=== PATIENT | female | born 1955 ===

== ENCOUNTER 2017-02-07 09:45 | Outpatient (CLI) | payer BC | END 2017-02-07 09:46 | disposition home or self-care (01) | LOC: LAB 09:45 | DX: R05 Cough (principal) | CPT/HCPCS: 36415; 82164 ==

== ENCOUNTER 2020-11-09 02:32 | Emergency (ER) | payer MEDICARE ==
[2020-11-09 02:57] VITALS: BP 175/85
--- NOTE | 2020-11-09 03:50 | Cat Scan Report ---
CT HEAD WITHOUT CONTRAST INDICATION / CLINICAL INFORMATION: fell and hit head LAC to head. TECHNIQUE: All CT scans at this location are performed using CT dose reduction for ALARA by means of automated e xposure control. COMPARISON: None available. FINDINGS: HEMORRHAGE: None. EXTRA-AXIAL SPACES: Normal in size and morphology for the patient's age. VENTRICULAR SYSTEM: Normal in size and morphology for the patient's age. CEREBRAL PARENCHYMA: Mild microangiopathy No significant abnormality. No acute territorial infarct. MIDLINE SHIFT OR HERNIATION: None. CEREBELLUM / BRAINSTEM: No significant abnormality. ORBITS: Normal as visualized. SOFT TISSUES of HEAD: Small hyperdense foreign body left frontal scalp soft tissues sagittal image 35 and axial image 18 CALVARIUM: No significant abnormality. PARANASAL SINUSES / MASTOID AIR CELLS: Normal as visualized. ADDITIONAL FINDINGS: None. IMPRESSION: 1. No acute intracranial abnormality. 2. Mild microangiopathy 3. Small laceration or foreign body left anterior scalp subcutaneous soft tissues Signer Name: Kyrie Rojas MD Signed: 11/09/2020 3:45 AM Workstation Name: [id number]
--- NOTE | 2020-11-09 04:56 | Emergency Department Report ---
ED Head Trauma HPI - General Chief complaint: Fall Stated complaint: SLIP AND FALL/HEAD LAC Time Seen by Provider: 11/09/20 04:45 Source: patient Mode of arrival: Ambulatory Limitations: No Limitations - History of Present Illness Initial comments: 65-year-old female with lower goes upstairs working when she lost her balance falling forward on the knees striking a fall and head hitting a door which had some eyeglasses causing it to break. Since falling striking her head she reports having a dull throbbing headache since the onset also sustained a l aceration. Headache has been gradually worsening since the onset but reports no loss of vision no tinnitus no seizure history is or activity. No chest pain palpitation no neck pain no nausea no vomiting MD Complaint: head injury, fall Loss of Consciousness: no Place: work Severity: moderate Severity scale (0 -10): 6 Quality: dull, aching - Related Data Previous Rx's Medication Instructions Recorded Last Taken Type Ibuprofen [Motrin] 800 mg PO Q8HR PRN #15 tablet 12/09/14 Unknown Rx Allergies/Adverse reactions: Allergies Allergy/AdvReac Type Severity Reaction Status Date / Time hydromorphone Allergy Itching Verified 12/09/14 15:42 morphine Allergy Itching Verified 12/09/14 15:42 ED Review of Systems ROS: Stated complaint: SLIP AND FALL/HEAD LAC Other details as noted in HPI Comment: All other systems reviewed and negative ED Past Medical Hx - Past Medical History Previous Medical History?: No - Surgical History Past Surgical History?: Yes Additional Surgical History: right partial knee replacement. hyster. - Social History Smoking Status: Never Smoker Substance Use Type: None - Medications Home Medications: Home Medications Medication Instructions Recorded Confirmed Last Taken Type Ibuprofen [Motrin] 800 mg PO Q8HR PRN #15 tablet 12/09/14 Unknown Rx ED Physical Exam - General Limitations: No Limitations General appearance: alert, in no apparent distress - Expanded Head Exam Expanded 1 - Laceration to this region linear 2.5 cm - Eye Eye exam: Present: normal appearance, PERRL, EOMI, scleral icterus Pupils: Present: normal accommodation - ENT ENT exam: Present: normal exam, normal orophraynx, mucous membranes moist, TM's normal bilaterally - Neck Neck exam: Present: normal inspection, full ROM - Respiratory Respiratory exam: Present: normal lung sounds bilaterally. Absent: respiratory distress - Cardiovascular Cardiovascular Exam: Present: regular rate, normal rhythm. Absent: systolic murmur, diastolic murmur, rubs, gallop - GI/Abdominal GI/Abdominal exam: Present: soft, distended, normal bowel sounds. Absent: guarding, rebound, hyperactive bowel sounds, hypoactive bowel sounds, bruit - Extremities Exam Extremities exam: Present: normal inspection - Back Exam Back exam: Present: normal inspection. Absent: CVA tenderness (R), CVA tenderness (L) - Neurological Exam Neurological exam: Present: alert, oriented X3, CN II-XII intact, normal gait - Psychiatric Psychiatric exam: Present: normal affect, normal mood. Absent: anxious, flat affect - Skin Skin exam: Present: warm, dry, intact, normal color. Absent: rash, diaphoretic, erythema ED Course Vital Signs 11/09/20 02:56 Temperature 98.9 F Pulse Rate 74 Respiratory 18 Rate Blood Pressure 175/85 [Right] O2 Sat by Pulse 98 Oximetry - Laceration /Wound Repair Head Wound Location: head Wound Length (cm): 2 Wound's Depth, Shape: linear Wound Explored: clean Betadine Prep?: Yes Anesthesia: 1% Lidocaine Wound Debrided: minimal Wound Repaired With: Dermabond - Radiology Data Radiology results: report reviewed [facility] [address] [place] [address] Cat Scan Report Signed Patient: MO SMALLS MR#: [id number] 37 : 1955 Acct:[id number] Age/Sex: 65 / F ADM Date: 11/09/20 Loc: ED Attending Dr: Ordering Physician: STEFANI CHIN MD Date of Service: 11/09/20 Procedure(s): CT head/brain wo con Accession Number(s): [id number] cc: STEFANI CHIN MD CT HEAD WITHOUT CONTRAST INDICATION / CLINICAL INFORMATION: fell and hit head LAC to head. TECHNIQUE: All CT scans at this location are performed using CT dose reduction for ALARA by means of automated exposure control. COMPARISON: None available. FINDINGS: HEMORRHAGE: None. EXTRA-AXIAL SPACES: Normal in size and morphology for the patient's age. VENTRICULAR SYSTEM: Normal in size and morphology for the patient's age. CEREBRAL PARENCHYMA: Mild microangiopathy No significant abnormality. No acute territorial infarct. MIDLINE SHIFT OR HERNIATION: None. CEREBELLUM / BRAINSTEM: No significant abnormality. ORBITS: Normal as visualized. SOFT TISSUES of HEAD: Small hyperdense foreign body left frontal scalp soft tissues sagittal image 35 and axial image 18 CALVARIUM: No significant abnormality. PARANASAL SINUSES / MASTOID AIR CELLS: Normal as visualized. ADDITIONAL FINDINGS: None. IMPRESSION: 1. No acute intracranial abnormality. 2. Mild microangiopathy 3. Small laceration or foreign body left anterior scalp subcutaneous soft tissues Signer Name: Kyrie Rojas MD Signed: 11/09/2020 3:45 AM Workstation Name: [id number] Transcribed By: TL Dictated By: Kyrie Rojas MD Electronically Authenticated By: Kyrie Rojas MD Signed Date/Time: 11/09/20344 DD/ 1 TD/TT: Print Cancel - Medical Decision Making Current Perry coma scale 15. Does have large occiput to hematoma. No skull crepitance or stepoff. No Perkins sign. No raccoon eyes. No fluid from nose or ears. No nasal septal hematoma. No open wounds. No cervical spine tenderness. CT scan performed to evaluate for any intracranial injury or skull fracture. Patient is protecting airway and otherwise has an unremarkable secondary trauma survey. Given instructions regarding supportive care including pain meds as needed, return precautions, follow-up with primary physician. Critical care attestation.: If time is entered above; I have spent that time in minutes in the direct care of this critically ill patient, excluding procedure time. ED Disposition Clinical Impression: Fall, Head injury, Laceration of head Disposition: 01 HOME / SELF CARE / HOMELESS Is pt being admited?: No Does the pt Need Aspirin: No Condition: Stable Instructions: How to Use Cold Therapy, [id number], Laceration Care, Adult, Sutures, [place], or Adhesive Wound Closure Additional Instructions: Wound was repaired with tissue adhesive no sutures to remove. Referrals: CINDY ESCOBAR MD [Staff Physician] - 2-3 Days Forms: Work/School Release Form(ED)
[2020-11-09] MEDS ORDERED: LIDOCAINE (2%) 20 MG/1 ML VIAL 20 ML MDV INFILTRATI STA (05:20)
[2020-11-09] MEDS ORDERED: IBUPROFEN 600 MG TAB PO ONE (06:22)
== END 2020-11-09 06:28 | disposition home or self-care (01) ==
LOC: ED 02:32
DX: S01.01XA Laceration without foreign body of scalp, initial encounter (principal); Z88.5 Allergy status to narcotic agent; W19.XXXA Unspecified fall, initial encounter; Y93.89 Activity, other specified; Y92.89 Other specified places as the place of occurrence of the external cause; Y99.8 Other external cause status
CPT/HCPCS: 70450; 99283

== ENCOUNTER 2020-11-11 23:02 | Emergency (ER) | payer MEDICARE ==
[2020-11-12 00:39] VITALS: BP 184/67
[2020-11-12 01:43] LABS: Basophils % (Auto) 0.5 % (0.0-1.8); Eosinophils # (Auto) 0.2 K/mm3 (0.0-0.4); Eosinophils % (Auto) 2.1 % (0.0-4.3); Hematocrit 38.4 % (30.3-42.9); Hemoglobin 12.8 gm/dl (10.1-14.3); Lymphocytes # (Auto) 3.4 K/mm3 (1.2-5.4); Lymphocytes % (Auto) 41.7 % (13.4-35.0); Mean Corpuscular HGB Conc 33 % (30-34); Mean Corpuscular Volume 83 fl (79-97); Monocytes # (Auto) 0.6 K/mm3 (0.0-0.8); Monocytes % (Auto) 7.7 % (0.0-7.3); Platelet Count 311 K/mm3 (140-440); Red Blood Count 4.64 M/mm3 (3.65-5.03); Red Cell Distribution Width 13.7 % (13.2-15.2)
[2020-11-12 01:49] LABS: Alanine Aminotransferase 19 units/L (7-56); Albumin 4.4 g/dL (3.9-5); Blood Urea Nitrogen 7 mg/dL (7-17); Calcium 9.4 mg/dL (8.4-10.2); Hemolysis Index 0
[2020-11-12 01:55] LABS: BUN/Creatinine Ratio 10
--- NOTE | 2020-11-12 03:12 | Emergency Department Report ---
ED Headache HPI - General Chief Complaint: Headache Stated Complaint: EMESIS/HEAD INJURY Time Seen by Provider: 11/12/20 03:07 Source: patient Exam Limitations: no limitations - History of Present Illness Initial Comments: Patient is a 65-year-old female who presents emergency room with complaints of headache. Patient states she fell 3 days ago. Patient states that her headache is worsening. Patient states when she fell 3 days ago she was seen here and she had her head glued. Patient states she had a CT on that visit. Patient complains of dizziness and nausea vomiting. Patient states she also feels warm when her headache is severe.. Patient denies fever and chills. Patient denies cough. Patient denies neck stiffness. Patient states the laceration site does not hurting worse. Patient denies redness to the laceration site. Patient states that he had a minimal headache when she was here on Monday and now it is severe. Patient states the dizziness and nausea and vomiting are new. Patient states the warm feeling is the same. Patient states the pain is a 10 out of 10. Patient denies recent travel. Patient denies recent international travel. Patient denies exposure to the novel coronavirus. Patient denies sick contacts. Patient denies fever and chills. Patient denies cough. Patient denies diarrhea. Patient denies coming in contact with anybody with symptoms of the novel coronavirus. Patient denies trauma after the original fall. Timing/Duration: increasing Quality: severe Head Injury Location: global Recent Head Trauma: head trauma > 24 hrs ago Modifying Factors: improves with: movement, rest Associated Symptoms: nausea/vomiting, other (Dizziness). denies: confusion, fatigue, facial pain, fever/chills, flushing, loss of consciousness, nasal congestion, nasal drainage, numbness in legs/feet, rash, seizures, sinus infection, stiff neck, vision changes, weakness Allergies/Adverse Reactions: Allergies hydromorphone Allergy (Verified 12/09/14 15:42) Itching morphine Allergy (Verified 12/09/14 15:42) Itching Home Medications: Ambulatory Orders Acetaminophen/Codeine [Tylenol /Codeine # 3 tab] 1 tab PO Q6H PRN #12 tab Ibuprofen [Motrin 800 MG tab] 800 mg PO Q8HR PRN #15 tablet 11/12/20 ED Review of Systems ROS: Stated complaint: EMESIS/HEAD INJURY Other details as noted in HPI Constitutional: denies: chills, fever Eyes: denies: eye pain, eye discharge, vision change ENT: denies: ear pain, throat pain Respiratory: denies: cough, shortness of breath, wheezing Cardiovascular: denies: chest pain, palpitations Endocrine: no symptoms reported Gastrointestinal: denies: abdominal pain, nausea, diarrhea Genitourinary: denies: urgency, dysuria, discharge Musculoskeletal: denies: back pain, joint swelling, arthralgia Skin: denies: rash, lesions Neurological: as per HPI, headache. denies: weakness, paresthesias Psychiatric: denies: anxiety, depression Hematological/Lymphatic: denies: easy bleeding, easy bruising ED Past Medical Hx - Past Medical History Previous Medical History?: No - Surgical History Past Surgical History?: Yes Additional Surgical History: right partial knee replacement. hyster. - Family History Family history: no significant - Social History Smoking Status: Never Smoker Substance Use Type: None - Medications Home Medications: Home Medications Medication Instructions Recorded Confirmed Last Taken Type Acetaminophen/Codeine [Tylenol 1 tab PO Q6H PRN #12 tab 11/12/20 Unknown Rx /Codeine # 3 tab] Ibuprofen [Motrin 800 MG tab] 800 mg PO Q8HR PRN #15 tablet 11/12/20 Unknown Rx ED Physical Exam - General Limitations: No Limitations General appearance: alert, in no apparent distress - Head Head exam: Present: atraumatic, normocephalic - Eye Eye exam: Present: normal appearance, PERRL Pupils: Present: normal accommodation - ENT ENT exam: Present: mucous membranes moist - Neck Neck exam: Present: normal inspection, full ROM. Absent: tenderness, meningismus, lymphadenopathy, thyromegaly - Respiratory Respiratory exam: Present: normal lung sounds bilaterally. Absent: respiratory distress - Cardiovascular Cardiovascular Exam: Present: regular rate, normal rhythm. Absent: systolic murmur, diastolic murmur, rubs, gallop - GI/Abdominal GI/Abdominal exam: Present: soft, normal bowel sounds - Extremities Exam Extremities exam: Present: normal inspection - Back Exam Back exam: Present: normal inspection - Neurological Exam Neurological exam: Present: alert, oriented X3, CN II-XII intact, normal gait. Absent: abnormal gait, motor sensory deficit - Psychiatric Psychiatric exam: Present: normal affect, normal mood - Skin Skin exam: Present: warm, dry, normal color, other (Laceration noted to the left forehead and is glued and is healing well. No signs of infection or redness to the laceration site.). Absent: rash ED Course Vital Signs 11/12/20 00:37 Temperature 98.4 F Pulse Rate 74 Respiratory 18 Rate Blood Pressure 184/67 [Left] O2 Sat by Pulse 100 Oximetry - Reevaluation(s) Reevaluation #1: I discussed all results and clinical findings with patient. I discussed plan of care with patient. Patient agrees with plan of care. Patient is stable for discharge. Patient will be discharged home. Patient given discharge instructions. Patient voiced understanding of discharge instructions. 11/12/20 05:09 ED Medical Decision Making - Lab Data Result diagrams: 11/12/20 00:53 11/12/20 00:53 - Radiology Data Radiology results: report reviewed, image reviewed interpreted by me: Chest x-ray: No pneumonia, no pneumothorax, no foreign body, no osseous findings, no acute findings CT HEAD WITHOUT CONTRAST INDICATION / CLINICAL INFORMATION: Post-Fall x 3 days ago, Now with a worsening headache.. TECHNIQUE: All CT scans at this location are performed using CT dose reduction for ALARA by means of automated exposure control. COMPARISON: Head CT 11/09/2020 FINDINGS: HEMORRHAGE: None. EXTRA-AXIAL SPACES: Normal in size and morphology for the patient's age. VENTRICULAR SYSTEM: Normal in size and morphology for the patient's age. CEREBRAL PARENCHYMA: Periventricular and deep white matter hypoattenuation characteristic for microangiopathy, unchanged No significant abnormality. No acute territorial infarct. MIDLINE SHIFT OR HERNIATION: None. CEREBELLUM / BRAINSTEM: No significant abnormality. ORBITS: Normal as visualized. SOFT TISSUES of HEAD: No significant abnormality. CALVARIUM: No significant abnormality. PARANASAL SINUSES / MASTOID AIR CELLS: Normal as visualized. ADDITIONAL FINDINGS: None. IMPRESSION: 1. No acute intracranial abnormality. 2. Moderate microangiopathy, unchanged CHEST 2 VIEWS INDICATION / CLINICAL INFORMATION: dizziness. COMPARISON: None available. FINDINGS: SUPPORT DEVICES: None. HEART / MEDIASTINUM: No significant abnormality. LUNGS / PLEURA: No significant pulmonary or pleural abnormality. No pneumothorax. ADDITIONAL FINDINGS: No significant additional findings. IMPRESSION: 1. No acute findings. - Medical Decision Making Patient is a 65-year-old female presents emergency room for severe headache, dizziness, nausea and vomiting. Patient was recently seen here for a fall and head injury with laceration repair. Patient symptoms worsen dramatically. Patient laceration site is unremarkable and healing well with no signs of infection. Patient had labs done which were essentially unremarkable. Due to the patient's severity of her symptoms, a CT scan of the head was repeated to rule out ICH or acute intracranial process. Patient head CT was unchanged and unremarkable and no acute findings. Patient had a chest x-ray due to the dizziness. Patient's chest x-ray was negative for acute findings. I personally reviewed the chest x-ray. Patient does not require any further emergency medical services. Patient not require further inpatient services. Patient is stable for discharge. Patient discharged home. Patient will need to follow-up with a neurologist. Patient off work until cleared by neurology and primary care. Patient given ibuprofen prescription as well as Tylenol 3. Patient given concussion protocol. Patient to follow CDC guidelines. - Differential Diagnosis Headache, ICH, concussion, dizziness, severe headache Critical care attestation.: If time is entered above; I have spent that time in minutes in the direct care of this critically ill patient, excluding procedure time. ED Disposition Clinical Impression: Dizziness Fall Qualifiers: Encounter type: initial encounter Qualified Code(s): W19.XXXA - Unspecified fall, initial encounter Laceration of head Qualifiers: Encounter type: initial encounter Location of open wound of head: scalp Foreign body presence: without foreign body Qualified Code(s): S01.01XA - Laceration without foreign body of scalp, initial encounter Head injury Qualifiers: Encounter type: initial encounter Qualified Code(s): S09.90XA - Unspecified injury of head, initial encounter Headache Qualifiers: Headache type: post-traumatic Headache chronicity pattern: acute headache Intractability: not intractable Qualified Code(s): G44.319 - Acute post- traumatic headache, not intractable Concussion Qualifiers: Encounter type: initial encounter Loss of consciousness presence/duration: without LOC Qualified Code(s): S06.0X0A - Concussion without loss of consciousness, initial encounter Disposition: HOME / SELF CARE / HOMELESS Is pt being admited?: No Does the pt Need Aspirin: No Condition: Stable Instructions: Concussion, Adult, [id number], Head Injury, Adult, Laceration Care, Adult, Head Injury, Adult, [id number], Sutures, [place], or Adhesive Wound Closure, [id number], Returning to Sports and Activities After a Concussion, Adult Additional Instructions: Patient to follow-up with primary care in 2 to 3 days. Patient to follow-up with neurology in 2 to 3 days. Patient cannot return to work until cleared by neurology. Patient to rest. Patient to increase water. Patient to avoid strenuous exercise or heavy lifting until cleared by neurology. Patient to avoid smart phone use. Patient did not drive. Patient to avoid TV use. Patient to avoid places of heights. Patient to avoid flashing lights. Patient to follow concussion protocols. Patient to take Tylenol or ibuprofen as needed for pain. Patient to take meds as directed. Patient to return to the ER if condition worsens, changes or new symptoms arise. Prescriptions: Ibuprofen [Motrin 800 MG tab] 800 mg PO Q8HR PRN #15 tablet PRN Reason: Pain Acetaminophen/Codeine [Tylenol /Codeine # 3 tab] 1 tab PO Q6H PRN #12 tab PRN Reason: Pain , Severe (7-10) Referrals: MOHINDER BEST MD [Primary Care Provider] - 2-3 Days AKOSUA HOSKINS MD [Staff Physician] - 2-3 Days Forms: Work/School Release Form(ED) Time of Disposition: 05:14
--- NOTE | 2020-11-12 03:44 | XRay Report ---
CHEST 2 VIEWS INDICATION / CLINICAL INFORMATION: dizziness. COMPARISON: None available. FINDINGS: SUPPORT DEVICES: None. HEART / MEDIASTINUM: No significant abnormality. LUNGS / PLEURA: No significant pulmonary or pleural abnormality. No pneumothorax. ADDITIONAL FINDINGS: No significant additional findings. IMPRESSION: 1. No acute findings. Signer Name: Kyrie Rojas MD Signed: 11/12/2020 3:39 AM Workstation Name: [id number]
--- NOTE | 2020-11-12 03:44 | Cat Scan Report ---
CT HEAD WITHOUT CONTRAST INDICATION / CLINICAL INFORMATION: Post-Fall x 3 days ago, Now with a worsening headache.. TECHNIQUE: All CT scans at this location are performed using CT dose reduction for ALARA by means of automated e xposure control. COMPARISON: Head CT 11/09/2020 FINDINGS: HEMORRHAGE: None. EXTRA-AXIAL SPACES: Normal in size and morphology for the patient's age. VENTRICULAR SYSTEM: Normal in size and morphology for the patient's age. CEREBRAL PARENCHYMA: Periventricular and deep white matter hypoattenuation characteristic for microan giopathy, unchanged No significant abnormality. No acute territorial infarct. MIDLINE SHIFT OR HERNIATION: None. CEREBELLUM / BRAINSTEM: No significant abnormality. ORBITS: Normal as visualized. SOFT TISSUES of HEAD: No significant abnormality. CALVARIUM: No significant abnormality. PARANASAL SINUSES / MASTOID AIR CELLS: Normal as visualized. ADDITIONAL FINDINGS: None. IMPRESSION: 1. No acute intracranial abnormality. 2. Moderate microangiopathy, unchanged Signer Name: Kyrie Rojas MD Signed: 11/12/2020 3:39 AM Workstation Name: [id number]
[2020-11-12] MEDS ORDERED: IBUPROFEN 800 MG TAB PO ONE (05:32)
== END 2020-11-12 05:50 | disposition home or self-care (01) ==
LOC: ED 23:02
DX: S01.01XA Laceration without foreign body of scalp, initial encounter (principal); S09.90XA Unspecified injury of head, initial encounter; G44.319 Acute post-traumatic headache, not intractable; R42 Dizziness and giddiness; Z98.890 Other specified postprocedural states; W19.XXXA Unspecified fall, initial encounter; Y93.89 Activity, other specified; Y92.89 Other specified places as the place of occurrence of the external cause; Y99.8 Other external cause status
CPT/HCPCS: 36415; 70450; 71046; 80053; 85025; 99284